=== PATIENT | male | born 1935 | race Caucasian/White ===

== ENCOUNTER 2022-04-22 14:29 | Observation (INO) ==
[2022-04-22 15:43] LABS: Basophils # 0.1 K/mcL (0.0-0.2); Basophils % 0.6 %; Eosinophils # 0.1 K/mcL (0.0-0.6); Eosinophils % 0.7 %; Hematocrit 36.8 % (37.5-50.1); Hemoglobin 12.1 g/dL (12.9-16.9); Immature Granulocytes % 1.7 % (0-4); Lymphocytes # 1.5 K/mcL (0.6-4.6); Lymphocytes % 18.6 %; Mean Corpuscular HGB Conc 32.9 g/dL (31.6-35.5); Mean Corpuscular Hemoglobin 31.5 pg (28.0-33.3); Mean Corpuscular Volume 95.8 fL (83.0-100.0); Mean Platelet Volume 10.7 fL (9.4-12.4); Monocytes # 0.2 K/mcL (0.0-1.3); Neutrophils # 6.1 K/mcL (1.6-8.9); Platelet Count 383 K/mcL (140-400); Red Blood Count 3.84 M/mcL (4.19-5.50); Red Cell Distribution Width 13.8 % (11.5-14.5); Segmented Neutrophils % 75.4 %; White Blood Count 8.1 K/mcL (4.3-11.1)
[2022-04-22] MEDS ORDERED: 0.9 % Sodium Chloride 1,000 ML ONE (15:55)
[2022-04-22 16:02] LABS: BUN/Creatinine Ratio 21 (6-26); Blood Urea Nitrogen 20 mg/dL (8-23); Calcium 8.8 mg/dL (8.6-10.3); Carbon Dioxide 23 mEq/L (23-29); Chloride 100 mEq/L (98-107); Glucose 135 mg/dL (70-105); Osmolality,Calculated 275 (280-300); Potassium 4.9 mEq/L (3.5-5.1); Sodium 130 mEq/L (136-145); eGFR For African Americans > 60 (> 60); eGFR For Non-African Americans > 60 (> 60)
[2022-04-22 16:19] LABS: Alanine Aminotransferase 51 Units/L (7-52); Albumin 2.8 g/dL (3.5-5.7); Albumin/Globulin Ratio 0.7 (1.1-2.2); Alkaline Phosphatase 140 Units/L (34-104); Aspartate Amino Transferase 29 Units/L (13-39); Bilirubin,Direct 0.2 mg/dL (0.0-0.2); Bilirubin,Indirect 0.4 mg/dL (0.0-1.0); Bilirubin,Total 0.6 mg/dL (0.3-1.0); Globulin 4.3 g/dL (2.4-3.5); Total Protein 7.1 g/dL (6.4-8.9)
[2022-04-22 16:28] LABS: INR 1.2; Prothrombin Time 13.5 Seconds (9.4-12.1)
[2022-04-22] MEDS ORDERED: Iopamidol - 370 500 ML MLS IVP ONE (16:36)
[2022-04-22 16:39] LABS: Activated Partial Thrombo Time 32.2 Seconds (26.0-36.0)
[2022-04-22 17:08] LABS: Adenovirus Not Detected (Not Detect); Coronavirus 229E Not Detected (Not Detect); Coronavirus HKU1 Not Detected (Not Detect); Coronavirus NL63 Not Detected (Not Detect); Coronavirus OC43 Not Detected (Not Detect)
[2022-04-22 17:09] LABS: Bordetella Pertussis Not Detected (Not Detect); Chlamydophila pneumoniae Not Detected (Not Detect); Human Metapneumovirus Not Detected (Not Detect); Human Rhinovirus/Enterovirus Not Detected (Not Detect); Influenza A Subtype 2009 H1 Not Detected (Not Detect); Influenza B Not Detected (Not Detect); Mycoplasma pneumoniae Not Detected (Not Detect); Parainfluenza Virus 1 Not Detected (Not Detect); Parainfluenza Virus 2 Not Detected (Not Detect); Parainfluenza Virus 3 Not Detected (Not Detect); Parainfluenza Virus 4 Not Detected (Not Detect); Respiratory Syncytial Virus Not Detected (Not Detect)
[2022-04-22 17:10] LABS: SARS-CoV-2 DETECTED (Not Detect)
[2022-04-22 17:15] LABS: Thyroid Stimulating Hormone 3.134 mcIU/mL (0.340-5.600)
[2022-04-22] MEDS ORDERED: Ondansetron 4 MG/2 ML VIAL IVP PRN (19:51)
[2022-04-22] MEDS ORDERED: Naloxone 0.4 MG/ML INJ IVP PRN (19:51)
[2022-04-22] MEDS ORDERED: Perflutren Lipid Microsphere 1.3 ML in 0.9 % Sodium Chloride 8.7 ML IVP PRN (21:19)
[2022-04-22] MEDS ORDERED: Ipratropium/Albuterol Neb 3 ML IH PRN (21:30)
[2022-04-22 21:37] LABS: Troponin I 0.03 ng/mL (< 0.04)
[2022-04-22] MEDS: TESTOSTERONE TP SCH (22:26)
[2022-04-22] MEDS: Melatonin 3 MG TABLET PO PRN (22:26)
[2022-04-22] MEDS ORDERED: Aspirin Enteric Coated 81 MG Tablet PO ONE (22:45)
[2022-04-23 01:36] LABS: Basophils % 0.3 %; Eosinophils % 0.4 %; Hematocrit 32.9 % (37.5-50.1); Immature Granulocytes % 1.9 % (0-4); Lymphocytes # 1.6 K/mcL (0.6-4.6); Lymphocytes % 17.6 %; Mean Corpuscular HGB Conc 33.4 g/dL (31.6-35.5); Mean Corpuscular Volume 95.6 fL (83.0-100.0); Mean Platelet Volume 10.4 fL (9.4-12.4); Monocytes # 0.3 K/mcL (0.0-1.3); Monocytes % 3.7 %; Neutrophils # 6.8 K/mcL (1.6-8.9); Platelet Count 307 K/mcL (140-400); Red Blood Count 3.44 M/mcL (4.19-5.50); Red Cell Distribution Width 13.6 % (11.5-14.5); Segmented Neutrophils % 76.1 %
[2022-04-23 01:54] LABS: BUN/Creatinine Ratio 19 (6-26); Blood Urea Nitrogen 18 mg/dL (8-23); Carbon Dioxide 21 mEq/L (23-29); Chloride 101 mEq/L (98-107); Chol/HDL Ratio 5.4 (0-4.9); Cholesterol 97 mg/dL (< 200); Glucose 120 mg/dL (70-105); HDL Cholesterol 18 mg/dL (40-59); LDL Cholesterol,Calculated 57 mg/dL (< 100); Magnesium 1.8 mg/dL (1.6-2.6); Osmolality,Calculated 271 (280-300); Phosphorous 3.4 mg/dL (2.7-4.5); Potassium 4.2 mEq/L (3.5-5.1); Sodium 129 mEq/L (136-145); Triglycerides 112 mg/dL (< 150); eGFR For African Americans > 60 (> 60); eGFR For Non-African Americans > 60 (> 60)
[2022-04-23 02:19] LABS: Folate 21.5 ng/mL (3.0-16.0)
[2022-04-23 02:29] LABS: Estimated Average Glucose 137 mg/dl; Hemoglobin A1C 6.4 %
[2022-04-23] MEDS ORDERED: Furosemide 40 MG/4 ML VIAL IVP ONE (04:11)
[2022-04-23] MEDS: Multivit/Ca/Min/Fe/FA 1 TAB TABLET PO SCH (08:59)
[2022-04-23] MEDS ORDERED: Aspirin Enteric Coated 81 MG Tablet PO SCH (09:00)
[2022-04-23] MEDS: amLODIPine 5 MG TABLET PO SCH (09:00)
[2022-04-23] MEDS: *HR* Enoxaparin 40 MG/0.4 ML SYRINGE SQ SCH (09:00)
[2022-04-23] MEDS ORDERED: Dorzolamide/Timolol 1 DROP BOTH EYES SCH (09:00)
[2022-04-23] MEDS: lisinopriL 20 MG TABLET PO SCH (09:00)
[2022-04-23] MEDS: TESTOSTERONE TP SCH (09:46)
[2022-04-23 10:03] LABS: BUN/Creatinine Ratio 18 (6-26); Blood Urea Nitrogen 18 mg/dL (8-23); Calcium 7.2 mg/dL (8.6-10.3); Carbon Dioxide 25 mEq/L (23-29); Chloride 99 mEq/L (98-107); Glucose 154 mg/dL (70-105); Osmolality,Calculated 275 (280-300); Sodium 130 mEq/L (136-145); eGFR For African Americans > 60 (> 60); eGFR For Non-African Americans > 60 (> 60)
[2022-04-23] MEDS ORDERED: Ipratropium 1 PUFF INHALER IH PRN (14:58)
[2022-04-23] MEDS ORDERED: Ipratropium 1 PUFF INHALER IH ONE (15:04)
[2022-04-23] MEDS: Dorzolamide/Timolol OPTH 10 ML BOTTLE BOTH EYES SCH ×2 (18:11→22:44)
[2022-04-23] MEDS ORDERED: Latanoprost 2.5 ML BOTTLE BOTH EYES SCH (21:00)
[2022-04-23] MEDS: Melatonin 3 MG TABLET PO PRN (22:45)
[2022-04-24 03:36] LABS: BUN/Creatinine Ratio 19 (6-26); Blood Urea Nitrogen 20 mg/dL (8-23); Calcium 8.1 mg/dL (8.6-10.3); Carbon Dioxide 25 mEq/L (23-29); Chloride 99 mEq/L (98-107); Glucose 102 mg/dL (70-105); Osmolality,Calculated 273 (280-300); Potassium 4.2 mEq/L (3.5-5.1); Sodium 130 mEq/L (136-145); eGFR For African Americans > 60 (> 60); eGFR For Non-African Americans > 60 (> 60)
[2022-04-24 06:44] VITALS: PULSE 55
[2022-04-24] MEDS: TESTOSTERONE TP SCH (09:17)
[2022-04-24] MEDS: Dorzolamide/Timolol OPTH 10 ML BOTTLE BOTH EYES SCH (09:46)
[2022-04-24] MEDS: amLODIPine 5 MG TABLET PO SCH (09:47)
[2022-04-24] MEDS: Multivit/Ca/Min/Fe/FA 1 TAB TABLET PO SCH (09:47)
[2022-04-24] MEDS: lisinopriL 20 MG TABLET PO SCH (09:47)
[2022-04-24] MEDS: *HR* Enoxaparin 40 MG/0.4 ML SYRINGE SQ SCH (09:50)
[2022-04-24 10:04] VITALS: BP 124/65; TEMP 97.4; O2SAT 96
== END 2022-04-24 15:29 | disposition home or self-care (01) ==
LOC: EMEROOARM 14:29 → 3BNU 14:29 → SUATTDRO 19:20 → 3BNU 20:19
PROVIDERS: ADMIT General Practice; ATTEND Internal Medicine